=== PATIENT | male | born 1960 | race Caucasian/White ===

== ENCOUNTER 2017-09-16 18:10 | Emergency (ER) | payer SELFPAY ==
[2017-09-16] MEDS ORDERED: Morphine 4 MG/ML Carpuject ONE (18:29)
[2017-09-16 18:39] LABS: pH (venous) 7.36 (7.35-7.45)
[2017-09-16 18:40] LABS: Base Excess 1.1 mEq/L (-2 - +2)
[2017-09-16 18:41] LABS: Hemoglobin (Hb) 14.8 g/dL (13.1-17.2)
[2017-09-16 18:47] LABS: Hemoglobin 15.1 g/dL (14.0-18.0); Mean Corpuscular HGB CONC 35.7 g/dL (32.0-36.0); Mean Corpuscular Hemoglobin 31.9 pg (27.0-31.0); Mean Corpuscular Volume 89.4 fl (80.0-94.0); Mean Platelet Volume 7.9 fL (7.4-10.4); Platelet Count 194 thou/uL (130-400); RBC Distribution Width 12.1 % (11.5-14.5); Red Blood Cell (RBC) Count 4.73 mill/uL (4.70-6.10); White Blood Cell (WBC) Count 21.7 thou/uL (4.8-10.8)
[2017-09-16 18:51] LABS: ALT (SGPT) 25 U/L (8-55); AST (SGOT) 23 U/L (5-34); Albumin 4.1 g/dL (3.5-5.0); Alkaline Phosphatase 88 U/L (40-150); Anion Gap 17 mmol/L (10-20); BUN (Urea Nitrogen) 16 mg/dL (8.4-25.7); Bilirubin, Total 1.1 mg/dL (0.2-1.2); Calc. Creatinine Clearance 0 mL/min (70-130); Calcium 9.6 mg/dL (7.8-10.44); Carbon Dioxide 25 mmol/L (22-29); Chloride 97 mmol/L (98-107); Estimated GFR-MDRD Greater than 90; Globulin 4.1 g/dL (2.4-3.5); Glucose 116 mg/dL (70-105); Lipase 8 U/L (8-78); Potassium 4.3 mmol/L (3.5-5.1); Protein, Total 8.2 g/dL (6.0-8.3); Sodium 135 mmol/L (136-145)
[2017-09-16 18:52] LABS: CKMB 0.5 ng/mL (0-6.6); Troponin I Less than 0.010 ng/mL (< 0.028)
[2017-09-16 19:04] LABS: Lymphocytes 5 % (21-51); MDiff Complete? YES; Monocytes 5 % (0-10); Neutrophil 89 % (42-75)
[2017-09-16 19:13] LABS: INR-International Normal Ratio 1.5; PTT 36.9 SEC (22.9-36.1); Prothrombin Time 18.5 SEC (12.0-14.7)
[2017-09-16] MEDS ORDERED: Sodium Chloride 0.9% 100 ML ONE (19:15)
[2017-09-16] MEDS ORDERED: cefTRIAXone\\ROCEPHIN 1 GM VIAL ONE (19:15)
[2017-09-16] MEDS ORDERED: Ketorolac Tromethamine 30 MG/ML VIAL ONE (19:21)
[2017-09-16] MEDS ORDERED: Enoxaparin Sodium 100 MG/ML SYRINGE ONE (20:50)
--- NOTE | 2017-09-16 21:15 | RAD ---
PORTABLE CHEST 09/16/17 An AP portable film at 1817 is compared with an 07/09/17 study. A left lower lobe infiltrate is present which is new. Pleural effusions are suggested bilaterally. Th e heart size is approximately the same as before. The upper lobes do not appear congested. IMPRESSION: Pleural effusions and left lower lobe infiltrate. See CT report to follow for additional information. POS: HOME
--- NOTE | 2017-09-16 21:23 | CT ---
CT ANGIO OF THE CHEST WITH CONTRAST 09/16/[address] of the chest was compared with a prior study of 07/09/17 done at [facility]. After a bolus of IV contrast, axial and oblique coronal slices were obtained. The quality of the brook dy is quite low due to timing of the bolus. Nevertheless, a positive result was obtained. There is evidence of an embolus in one of the left lower lobe pulmonary arteries, best displayed on s lices 46 through 50, especially slice 48. There also appears to be a fair amount of adenopathy here, more so than was present in July. In addition, while the opacification of right pulmonary artery branches is even worse, there is a suspicion of emboli going to the right lower lobe region. There is no sign of aortic aneurysm or dissection. Bilateral pleural effusions are present. There are infiltrative changes in the lungs bilaterally with a very dense infiltrate present in the left lower lobe. Elsewhere, one sees areas of streaking in th e right middle and right lower lobes. The visible portions of the upper abdomen, which are minimal, showed no acute changes. IMPRESSION: 1. Low sensitivity study but one that does show evidence of pulmonary embolism in a left lower l obe arterial branch and probably in right lower lobe branches as well. 2. Bilateral pleural effusions. Infiltrative changes with dense infiltrate in the left lower lob e. 3. Left hilar adenopathy which is actually a little larger than it was on an 07/09/17 study. The findings were discussed with Dr. Perez at 2039. Code CR POS: HOME
== END 2017-09-16 21:30 | disposition short-term general hospital (02) ==
LOC: BURERS 18:10
DX: I26.99 Other pulmonary embolism without acute cor pulmonale (principal); J18.9 Pneumonia, unspecified organism; I10 Essential (primary) hypertension; F17.210 Nicotine dependence, cigarettes, uncomplicated; Z79.899 Other long term (current) drug therapy
CPT/HCPCS: 71045; 71275; 80053; 82553; 82805; 83690; 83880; 84484; 85025; 85379; 85610; 85730; 93005; 96361; 96365; 96372; 96375; J0696; J1650; J1885; J2270; J7050